=== PATIENT | male | born 1985 | race Caucasian/White ===

== ENCOUNTER 2020-03-08 02:37 | Emergency (ER) | payer SELFPAY ==
--- NOTE | 2020-03-08 02:50 | NUR ---
PATIENT REFUSING TO BE TRIAGED. PATIENT LEFT WITHOUT BEING TRIAGE. MD NOTIFIED.
== END 2020-03-08 02:53 | disposition home or self-care (01) ==
LOC: ER 02:37
DX: Z53.21 Procedure and treatment not carried out due to patient leaving prior to being seen by health care provider (principal)

== ENCOUNTER 2020-04-13 22:22 | Emergency (ER) | payer MEDICARE, OTHER ==
[~2020-04-13] VITALS: Ht 185.4 cm; Wt 111.1 kg
--- NOTE | 2020-04-13 22:45 | NUR ---
PT CAME TO THE ER FOR BIZARRE BEHAVIOR. PT AGITATED, YELLING, AND HYPERVERBAL. PT ADMITS TO BEING HOMICIDAL.RESPIRATIONS EVEN AND UNLABORED ON RA W/ NAD NOTED. SAFETY PRECAUTIONS IMPLEMENTED. 1:1 SITTER AT BEDSIDE. PT CHANGED INTO GOWN, BELINGINGS PLACED TO LOCKER.
--- NOTE | 2020-04-13 22:48 | NUR ---
URINE COLLECTED AND SENT TO LAB
[2020-04-13] MEDS ORDERED: HALOPERIDOL LACTATE INJ 5 MG/ML VIAL ONE (22:51)
[2020-04-13] MEDS ORDERED: LORAZEPAM INJ 2 MG/ML VIAL ONE (22:52)
[2020-04-13] MEDS ORDERED: LORAZEPAM INJ 2 MG/ML VIAL IM ONE (23:00)
[2020-04-13] MEDS ORDERED: HALOPERIDOL LACTATE INJ 5 MG/ML VIAL IM ONE (23:00)
[2020-04-13 23:07] LABS: BILIRUBIN,URINE NEGATIVE (NEGATIVE); BLOOD, URINE NEGATIVE Ery/uL (NEGATIVE); COLOR,URINE YELLOW (YELLOW); LEUKOCYTE ESTERASE ,URINE NEGATIVE (NEGATIVE); NITRITE, URINE NEGATIVE (NEGATIVE); PROTEIN,URINE NEGATIVE (NEGATIVE); UGLUCOSE NEGATIVE (NEGATIVE); UROBILINOGEN,URINE 0.2 EU/dL (0.2)
--- NOTE | 2020-04-13 23:15 | NUR ---
[employer] AT BEDSIDE FOR BLOOD DRAW
--- NOTE | 2020-04-13 23:22 | NUR ---
COVID SWAB SENT TO LAB
[2020-04-13 23:38] LABS: BASOPHILS % (AUTO) 0.4 % (0.0-2.0); HEMATOCRIT 39 % (39-51); HEMOGLOBIN 12.6 g/dL (13.5-17.5); LYMPHOCYTES # (AUTO) 3.5 /CMM (0.8-4.8); LYMPHOCYTES % (AUTO) 30.1 % (20.0-44.0); MEAN CORPUSCULAR HGB CONC 33 g/dl (31.0-36.0); MEAN CORPUSCULAR VOLUME 93 fL (80-96); MONOCYTES % (AUTO) 8.6 % (2.0-12.0); NEUTROPHILS % (AUTO) 59.9 % (43.0-81.0); PLATELET COUNT (AUTO) 386 /CMM (150-450); RED BLOOD CELL COUNT(AUTO) 4.14 MIL/uL (4.5-6.0); WHITE BLOOD COUNT (AUTO) 11.8 K/uL (4.3-11.0)
[2020-04-13 23:48] LABS: CALCIUM, SERUM 9.1 mg/dL (8.5-10.1); CARBON DIOXIDE 32 mmol/L (21-32); CHLORIDE 103 mmol/L (98-107); CREATININE 0.8 mg/dL (0.6-1.3); GLUCOSE 93 mg/dL (74-106); POTASSIUM 4.3 mmol/L (3.5-5.1); SODIUM SERUM 143 mmol/L (136-145); UREA NITROGEN, BLOOD 18 mg/dL (7-18)
[2020-04-13] MEDS ORDERED: diphenhydrAMINE HCL 50 MG/ML VIAL ONE (23:52)
[2020-04-13 23:54] LABS: ALANINE AMINOTRANSFERASE 25 U/L (12-78); ALBUMIN 3.5 g/dL (3.4-5.0); ALCOHOL, BLOOD < 3 mg/dL (0-0); ALKALINE PHOSPHATASE 62 U/L (46-116); ASPARTATE AMINOTRANSFERASE 13 U/L (15-37); BILIRUBIN,DIRECT 0.1 mg/dL (0.0-0.2); BILIRUBIN,TOTAL 0.1 mg/dL (0.2-1.0); TOTAL PROTEIN, SERUM 7.1 g/dL (6.4-8.2)
[2020-04-13 23:55] LABS: ACETAMINOPHEN 0 ug/ml (10-30)
[2020-04-14] MEDS ORDERED: diphenhydrAMINE HCL 50 MG/ML VIAL IM ONE
--- NOTE | 2020-04-14 00:02 | NUR ---
LAB CALLED REGARDING NEGATIVE COVID RESULT.
--- NOTE | 2020-04-14 01:09 | NUR ---
Patient is resting comfortably in bed with eyes closed. Easily aroused. VSS
--- NOTE | 2020-04-14 02:36 | NUR ---
PT AAOX4, CALM AND COOPERATIVE AT THIS TIME. PT REQUESTING TO BE ADMITTED TO [facility] FOR VOLUNTARY PSYCH ADMISSION.
--- NOTE | 2020-04-14 05:05 | NUR ---
CLINICAL FAXED TO [facility] FOR VOLUNTARY PSYCH ADMISSION.
--- NOTE | 2020-04-14 06:00 | NUR ---
PT ACCEPTED TO [facility] RENY DE LEON ACCEPTING MD KRISHNAMURTHY/MIREILLE PT WILL GO TO UNIT 1 PHONE # FOR REPORT
--- NOTE | 2020-04-14 06:30 | NUR ---
[facility] CALLED BACK WITH TRANSPORT INFO ETA 0830 [facility].
--- NOTE | 2020-04-14 06:47 | NUR ---
REPORT GIVEN TO JAYCEE RUSSO FOR [facility]
--- NOTE | 2020-04-14 07:49 | NUR ---
sleeping, easily arousable. vitals stable. sitter at bedside. will continue to monitor.
[2020-04-14 09:19] VITALS: BP 121/71
--- NOTE | 2020-04-14 09:20 | NUR ---
patient picked up by private ambulance going to [facility], in no distress.
== END 2020-04-14 09:19 ==
LOC: ER 22:31
DX: F15.150 Other stimulant abuse with stimulant-induced psychotic disorder with delusions (principal); R45.850 Homicidal ideations; R45.851 Suicidal ideations; Z20.828 Contact with and (suspected) exposure to other viral communicable diseases; D72.829 Elevated white blood cell count, unspecified
CPT/HCPCS: 36415; 80048; 80076; 80299; 80307; 80320; 81001; 85025; 87426; 96372 ×2; 99285; J1200; J1630; J2060; C9803; G0480

== ENCOUNTER 2020-05-27 18:01 | Emergency (ER) | payer MEDICARE, OTHER ==
[~2020-05-27] VITALS: Ht 185.4 cm; Wt 99.8 kg
[2020-05-27] MEDS ORDERED: OLANZAPINE 5 MG TABLET PO ONE (18:30)
[2020-05-27] MEDS ORDERED: OLANZAPINE 10 MG VIAL IM ONE ×2 (18:30)
[2020-05-27 18:45] LABS: BILIRUBIN,URINE SMALL (NEGATIVE); COLOR,URINE YELLOW (YELLOW); LEUKOCYTE ESTERASE ,URINE Negative (NEGATIVE); NITRITE, URINE Negative (NEGATIVE); PH,URINE 5.5 (5.0-8.0); PROTEIN,URINE Negative (NEGATIVE); UGLUCOSE Negative (NEGATIVE); UROBILINOGEN,URINE 0.2 EU/dL (0.2)
[2020-05-27 18:53] LABS: BACTERIA,URINE Rare /HPF (None Seen); RBC,URINE NONE SEEN /HPF (0-2); SQUAMOUS EPITHELIAL CELL,UR Few /HPF (None Seen); WBC,URINE NONE SEEN /HPF (0-3)
[2020-05-27 18:55] LABS: BASOPHILS % (AUTO) 0.4 % (0.0-2.0); EOSINOPHILS % (AUTO) 0.1 % (0.0-6.0); HEMATOCRIT 44 % (39-51); HEMOGLOBIN 14.5 g/dL (13.5-17.5); LYMPHOCYTES # (AUTO) 2.6 /CMM (0.8-4.8); LYMPHOCYTES % (AUTO) 27.6 % (20.0-44.0); MEAN CORPUSCULAR HGB CONC 33 g/dl (31.0-36.0); MEAN CORPUSCULAR VOLUME 92 fL (80-96); MONOCYTES # (AUTO) 0.6 /CMM (0.1-1.30); MONOCYTES % (AUTO) 6.1 % (2.0-12.0); NEUTROPHILS # (AUTO) 6.1 /CMM (1.8-8.9); NEUTROPHILS % (AUTO) 65.8 % (43.0-81.0); PLATELET COUNT (AUTO) 350 /CMM (150-450); RED BLOOD CELL COUNT(AUTO) 4.79 MIL/uL (4.5-6.0); WHITE BLOOD COUNT (AUTO) 9.3 K/uL (4.3-11.0)
--- NOTE | 2020-05-27 19:01 | NUR ---
BIBMOTHER FROM HOME TO ER CH1. AAOX4. NOT IN RESP DISTRESS. AMBULATORY. BROUGHT IN FOR AUDITORY HALLUCINATION. PT IS ALSO VERBALIZING AND SINGINGS "I WANT TO KILL MYSELF". PT DOES NOT SAY WHAT THE VOICES ARE TELLING HIM. AT ONE POINT WAS WALKING AROUND THE ER AND TALING TO HIMSELF. PT WAS ASSISTED BACK TO BED AND MEDICATED. ALL BELONGAINGS TAKEN AWAY AND HAZARD REMOVED. WAS AT THE BEDSIDE FOR EVAL. ORDERS RECEIVED , NOTED AND CARRIED OUT.
--- NOTE | 2020-05-27 19:01 | NUR ---
PT WAS PLACED ON RESTARINT PER MD FOR SAFETY D/T AGITATION
[2020-05-27 19:17] LABS: CALCIUM, SERUM 9.7 mg/dL (8.5-10.1); CARBON DIOXIDE 27 mmol/L (21-32); CHLORIDE 101 mmol/L (98-107); CREATININE 1.1 mg/dL (0.6-1.3); GLUCOSE 88 mg/dL (74-106); POTASSIUM 4.9 mmol/L (3.5-5.1); SODIUM SERUM 136 mmol/L (136-145); UREA NITROGEN, BLOOD 23 mg/dL (7-18)
[2020-05-27 19:30] LABS: ALANINE AMINOTRANSFERASE 26 U/L (12-78); ALBUMIN 4.3 g/dL (3.4-5.0); ALCOHOL, BLOOD < 3 mg/dL (0-0); ALKALINE PHOSPHATASE 56 U/L (46-116); ASPARTATE AMINOTRANSFERASE 23 U/L (15-37); BILIRUBIN,DIRECT 0.1 mg/dL (0.0-0.2); BILIRUBIN,TOTAL 0.3 mg/dL (0.2-1.0); TOTAL PROTEIN, SERUM 8.2 g/dL (6.4-8.2)
[2020-05-27] MEDS ORDERED: LORAZEPAM INJ 2 MG/ML VIAL IM ONE ×2 (19:30→22:00)
[2020-05-27] MEDS ORDERED: HALOPERIDOL LACTATE INJ 5 MG/ML VIAL IM ONE (19:30)
[2020-05-27] MEDS ORDERED: diphenhydrAMINE HCL 50 MG/ML VIAL IM ONE (19:30)
[2020-05-27] MEDS ORDERED: LORAZEPAM INJ 2 MG/ML VIAL ONE ×2 (19:32→21:52)
[2020-05-27] MEDS ORDERED: diphenhydrAMINE HCL 50 MG/ML VIAL ONE (19:32)
[2020-05-27] MEDS ORDERED: HALOPERIDOL LACTATE INJ 5 MG/ML VIAL ONE (19:34)
[2020-05-27 19:44] LABS: ACETAMINOPHEN < 2 ug/ml (10-30)
--- NOTE | 2020-05-27 20:19 | NUR ---
PT STATED "JUST WAKING UP IN THE MORNING GOT A THANK GOD, I DONT KNOW BUT TODAY SEEMS CLARENCE OFF, NO BARKING FROM THE DOG, NO SMOG."
--- NOTE | 2020-05-27 21:11 | NUR ---
FACESHEET AND CLINICAL FAXED TO [facility] INTAKE FOR VOLUNTARY PSYCH ADMISSION.
--- NOTE | 2020-05-27 23:10 | NUR ---
PT DENIES SI AND HI. PT REQUESTED TO LEAVE THE E.R. STATED HE DID NOT WANT TO GO TO [facility]. AWARE. PT DISCHARGED. AMBULATED WITH STEADY GAIT. VSS.
[2020-05-27 23:35] VITALS: BP 131/81
== END 2020-05-27 23:35 | disposition home or self-care (01) ==
LOC: ER 18:10
DX: R45.851 Suicidal ideations (principal); F29 Unspecified psychosis not due to a substance or known physiological condition; F15.10 Other stimulant abuse, uncomplicated; F20.9 Schizophrenia, unspecified
CPT/HCPCS: 36415; 80048; 80076; 80299; 80307; 80320; 81001; 85025; 96372 ×2; 99285; J1200; J1630; J2060 ×2; J3490; G0480

== ENCOUNTER 2020-10-25 09:50 | Emergency (ER) | payer OTHER, MEDICARE ==
[~2020-10-25] VITALS: Ht 185.4 cm; Wt 102.1 kg
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
[2020-10-25] MEDS ORDERED: CEPH500C2 PO (10:20)
[2020-10-25] MEDS ORDERED: CEPHALEXIN MONOHYDRATE 500 MG CAPSULE PO ONE ×2 (10:22→10:30)
[2020-10-25] MEDS ORDERED: LORAZEPAM 1 MG TABLET ONE (10:22)
[2020-10-25] MEDS ORDERED: LORAZEPAM 1 MG TABLET PO ONE (10:30)
--- NOTE | 2020-10-25 10:31 | NUR ---
THE PATIENT REFUSED ORDERED ATIVAN 1 MG PO AND KEFLEX [address] DAVIS AWARE.
--- NOTE | 2020-10-25 10:32 | NUR ---
The patient alert and oriented x3. Patient discharged in stable condition. Written and verbal after care instructions given. Patient and police officers verbalizes understanding of instruction. The patient left ER with police officers.
[2020-10-25 10:33] VITALS: BP 137/80
== END 2020-10-25 10:34 ==
LOC: ER 09:56
DX: S51.812A Laceration without foreign body of left forearm, initial encounter (principal); L08.9 Local infection of the skin and subcutaneous tissue, unspecified; F20.9 Schizophrenia, unspecified; X78.0XXA Intentional self-harm by sharp glass, initial encounter; Y93.89 Activity, other specified; Y92.89 Other specified places as the place of occurrence of the external cause; Y99.8 Other external cause status
CPT/HCPCS: 99283; A6403

== ENCOUNTER 2023-07-17 11:08 | Emergency (ER) | payer MEDICARE, OTHER ==
[~2023-07-17] VITALS: Ht 182.9 cm; Wt 124.7 kg
[~2023-07-17 11:08] MED LIST: CEPH500C2 PO
[2023-07-17 11:20] VITALS: BP 132/88; TEMP 98.2; O2SAT 97
== END 2023-07-17 11:22 | disposition home or self-care (01) ==
LOC: ER 11:08
DX: F29 Unspecified psychosis not due to a substance or known physiological condition (principal); Z76.0 Encounter for issue of repeat prescription; F20.9 Schizophrenia, unspecified; Z79.899 Other long term (current) drug therapy

== ENCOUNTER 2024-09-27 23:05 | Emergency (ER) | payer MEDICARE, OTHER ==
[~2024-09-27] VITALS: Ht 175.3 cm; Wt 83.9 kg
[2024-09-28 00:42] LABS: BASOPHILS % (AUTO) 0.3 % (0.0-2.0); EOSINOPHILS % (AUTO) 0.4 % (0.0-6.0); HEMATOCRIT 42 % (39-51); HEMOGLOBIN 14.2 g/dL (13.5-17.5); LYMPHOCYTES # (AUTO) 2.9 K/uL (0.8-4.8); LYMPHOCYTES % (AUTO) 32.1 % (20.0-44.0); MEAN CORPUSCULAR HEMOGLOBIN 31 PG (26.0-33.0); MEAN CORPUSCULAR HGB CONC 34 g/dl (31.0-36.0); MEAN CORPUSCULAR VOLUME 92 fL (80-96); MONOCYTES # (AUTO) 0.7 K/uL (0.1-1.30); MONOCYTES % (AUTO) 7.7 % (2.0-12.0); NEUTROPHILS # (AUTO) 5.4 K/uL (1.8-8.9); NEUTROPHILS % (AUTO) 59.5 % (43.0-81.0); PLATELET COUNT (AUTO) 297 K/uL (150-450); RED BLOOD CELL COUNT(AUTO) 4.59 MIL/uL (4.5-6.0); RED CELL DISTRIBUTION WIDTH 14.9 % (11.5-15.0)
[2024-09-28 01:07] LABS: APPEARANCE,URINE CLEAR (CLEAR); BILIRUBIN,URINE 1+ (NEGATIVE); BLOOD, URINE NEGATIVE Ery/uL (NEGATIVE); COLOR,URINE YELLOW (YELLOW); KETONES,URINE 1+ mg/dL (NEGATIVE); LEUKOCYTE ESTERASE ,URINE NEGATIVE (NEGATIVE); NITRITE, URINE NEGATIVE (NEGATIVE); PROTEIN,URINE 1+ mg/dl (NEGATIVE); UGLUCOSE NEGATIVE (NEGATIVE)
[2024-09-28 01:07] LABS: ALANINE AMINOTRANSFERASE 33 U/L (12-78); ALBUMIN 4.1 g/dL (3.4-5.0); ALCOHOL, BLOOD < 3 mg/dL (0-10); ALKALINE PHOSPHATASE 45 U/L (46-116); ASPARTATE AMINOTRANSFERASE 25 U/L (15-37); BILIRUBIN,DIRECT 0.3 mg/dL (0.0-0.2); BILIRUBIN,TOTAL 0.7 mg/dL (0.2-1.0); CARBON DIOXIDE 25 mmol/L (21-32); CHLORIDE 105 mmol/L (98-107); GLUCOSE 87 mg/dL (74-106); POTASSIUM 3.6 mmol/L (3.5-5.1); SALICYLATE 2.8 mg/dL (2.8-20.0); SODIUM SERUM 140 mmol/L (136-145); TOTAL PROTEIN, SERUM 7.6 g/dL (6.4-8.2); UREA NITROGEN, BLOOD 14 mg/dL (7-18)
[2024-09-28 01:09] LABS: ACETAMINOPHEN <10 ug/ml (10-30)
[2024-09-28 01:10] LABS: AMPHETAMINE, URINE NEGATIVE (NEGATIVE); BARBITURATE, URINE NEGATIVE (NEGATIVE); BENZODIAZEPINE, URINE NEGATIVE (NEGATIVE); CANNABINOID, URINE NEGATIVE (NEGATIVE); COCCAINE, URINE NEGATIVE (NEGATIVE); OPIATE, URINE NEGATIVE (NEGATIVE); PHENCYCLIDINE SCREEN,URINE NEGATIVE (NEGATIVE)
[2024-09-28 01:14] LABS: ADD URINE CULTURE NO; BACTERIA,URINE Rare /HPF (None Seen); RBC,URINE 0-2 /HPF (0-2); SQUAMOUS EPITHELIAL CELL,UR Few /HPF (None Seen); WBC,URINE 0-2 /HPF (0-3)
[2024-09-28 03:10] VITALS: BP 122/81; TEMP 99; O2SAT 99
== END 2024-09-28 03:11 ==
LOC: ER 23:08
DX: R45.851 Suicidal ideations (principal); F20.9 Schizophrenia, unspecified; Z79.899 Other long term (current) drug therapy; Z20.822 Contact with and (suspected) exposure to COVID-19
CPT/HCPCS: 36415; 80048-TC; 80076-TC; 81001; 85025-TC; G0480